=== PATIENT | male | born 1955 | race African-American/Black ===

== ENCOUNTER 2016-07-24 10:47 | Inpatient (IN) | payer OTHER ==
[~2016-07-24] VITALS: Ht 180.3 cm; Wt 97.7 kg
[~2016-07-24 10:47] MED LIST: ASP81EC PO; Atorvastatin Calcium PO; CLOP75TA28 PO; DOCU-94 PO; GABA600T PO; Hctz PO; INSLISPI SC; INSUINJ37 SUBCUT; LIS10T PO; NOR10T PO
[2016-07-24 11:38] LABS: Basophils # (auto) 0 uL; Basophils % (auto) 0.5 % (0.0-2.0); DEFINITIVE VIEW TRANSMISSION; Eosinophils # (auto) 0 uL; Eosinophils % (auto) 0.4 % (0.0-7.0); Hematocrit 42.1 % (41.0-53.0); Hemoglobin 13.6 g/dL (13.5-17.5); Lymphocytes # (auto) 1.7 uL; Lymphocytes % (auto) 23.9 % (10.0-50.0); Mean Corpuscular Hemoglobin 26.1 pg (28.0-32.0); Mean Corpuscular Hgb Conc. 32.3 g/dL (32.0-36.0); Mean Corpuscular Volume 80.9 fL (80.0-100.0); Mean Platelet Volume 9.2 fL (7.4-10.4); Monocytes # (auto) 0.3 uL; Monocytes % (auto) 4.6 % (0.0-12.0); Neutrophils # (auto) 5.1 uL; Neutrophils % (auto) 70.6 % (37.0-80.0); Nucleated Red Blood Cells % 2.4 %; Platelet Count (auto) 223 10^3/uL (140-450); Red Cell Distribution Width 14.8 % (11.6-16.0); White Blood Cell 7.3 10^3/uL (4.4-10.8)
[2016-07-24 11:57] LABS: Albumin 2.9 g/dL (3.4-5.0); BUN/Creatinine Ratio 11.1; Bilirubin, Total 0.5 mg/dL (0.2-1.0); Magnesium 1.7 mg/dL (1.6-2.6); Potassium 3.8 mmol/L (3.5-5.1); Total Protein 7.4 g/dL (6.4-8.2)
[2016-07-24] MEDS ORDERED: FUROSEMIDE 40 MG/4 ML VIAL IV ONE (12:00)
[2016-07-24 13:15] LABS: B-Type Natriuretic Peptide 250.54 pg/mL (0-100); Temperature: 22.3 C (20.0-25.0)
[2016-07-24 15:13] LABS: Urine Bilirubin Negative (Negative); Urine Blood Negative /uL (Negative); Urine Ketone Negative (Negative); Urine Nitrite Negative (Negative); Urine RBC 4 /hpf (0 - 3); Urine Squamous Epithelial Cell FEW /hpf (<5); Urine Urobilinogen Normal (Negative)
[2016-07-24 15:17] LABS: Urine Glucose 3+ mg/dL (Normal)
[2016-07-24 15:18] LABS: Urine Color Yellow (Yellow)
[2016-07-24] MEDS ORDERED: LISINOPRIL 10 MG TAB PO ONE (17:15)
[2016-07-24] MEDS ORDERED: NITROGLYCERIN 0.4 MG SL TAB SL PRN (17:15)
[2016-07-24] MEDS ORDERED: DEXTROSE (50%) 50ML SYRG IV PRN (17:15)
[2016-07-24] MEDS ORDERED: NIFEdipine ER 30 MG TAB PO ONE (17:15)
[2016-07-24] MEDS: ALBUTEROL SULF 2.5 MG/0.5ML(0.5%) NEB SOLN NEB SCH (18:33)
[2016-07-24] MEDS: IPRATROPIUM BROM 0.5 MG/2.5ML INH SOL NEB SCH (18:33)
[2016-07-24] MEDS: ONDANSETRON HCL 4 MG/2 ML VIAL IV PRN (18:44)
[2016-07-24] MEDS: MORPHINE SULF INJ 2 MG/ML SYRINGE 1ML IV PRN (18:45)
[2016-07-24 20:30] VITALS: BP 150/95
[2016-07-24] MEDS: InsuLIN REG 1unit/0.01ml Soln (100units/ml) SC SCH (21:29)
[2016-07-24] MEDS: ACCU-CHEK COMFORT CURVE STRIP VI SCH (21:30)
[2016-07-24] MEDS: ATORVASTATIN 20 MG TAB PO SCH (21:47)
[2016-07-24] MEDS: GABAPENTIN 300 MG CAP PO SCH (21:47)
[2016-07-24 22:00] VITALS: BP 150/95
[2016-07-25 01:34] VITALS: BP 150/95
[2016-07-25 05:00] VITALS: BP 137/79
[2016-07-25] MEDS: HYDROcodone-ACET 10/325MG TAB PO PRN ×2 (05:07→23:06)
[2016-07-25] MEDS: GABAPENTIN 300 MG CAP PO SCH ×2 (05:49→14:00)
[2016-07-25] MEDS: InsuLIN REG 1unit/0.01ml Soln (100units/ml) SC SCH ×4 (06:02→23:10)
[2016-07-25] MEDS: ACCU-CHEK COMFORT CURVE STRIP VI SCH ×4 (06:03→23:11)
[2016-07-25 06:25] LABS: Potassium 4.2 mmol/L (3.5-5.1)
[2016-07-25 06:32] LABS: BUN/Creatinine Ratio 12.2
[2016-07-25 09:00] VITALS: BP 140/94
[2016-07-25] MEDS: IPRATROPIUM BROM 0.5 MG/2.5ML INH SOL NEB SCH ×4 (09:15→19:44)
[2016-07-25] MEDS: ALBUTEROL SULF 2.5 MG/0.5ML(0.5%) NEB SOLN NEB SCH ×4 (09:16→19:44)
[2016-07-25] MEDS: CLOPIDOGREL BISULFATE 75 MG TAB PO SCH (10:15)
[2016-07-25] MEDS: ASPirin 81 mg TAB PO SCH (10:15)
[2016-07-25] MEDS: FUROSEMIDE 40 MG/4 ML VIAL IV SCH (10:15)
[2016-07-25] MEDS: POTASSIUM CHL 20 Meq TABLET PO SCH (10:15)
[2016-07-25] MEDS: NIFEdipine ER 30 MG TAB PO SCH (10:16)
[2016-07-25] MEDS: METOLAZONE 5 MG TAB PO SCH (10:16)
[2016-07-25] MEDS: LISINOPRIL 10 MG TAB PO SCH (10:16)
[2016-07-25] MEDS: ONDANSETRON HCL 4 MG/2 ML VIAL IV PRN (12:21)
[2016-07-25] MEDS: MORPHINE SULF INJ 2 MG/ML SYRINGE 1ML IV PRN (12:21)
[2016-07-25 13:01] VITALS: BP_SYST 129; BP_DIAS 19; BP_DIAS 83
[2016-07-25 16:57] VITALS: BP 118/55
[2016-07-25] MEDS: ATORVASTATIN 20 MG TAB PO SCH (21:46)
[2016-07-25] MEDS: GABAPENTIN 400 MG CAP PO SCH (21:46)
[2016-07-25 22:00] VITALS: BP 129/70
[2016-07-26 05:30] VITALS: BP 126/68
[2016-07-26] MEDS: GABAPENTIN 400 MG CAP PO SCH ×3 (05:40→22:35)
[2016-07-26] MEDS: ACCU-CHEK COMFORT CURVE STRIP VI SCH ×4 (05:41→22:38)
[2016-07-26] MEDS: HYDROcodone-ACET 10/325MG TAB PO PRN ×2 (05:41→17:08)
[2016-07-26] MEDS: IPRATROPIUM BROM 0.5 MG/2.5ML INH SOL NEB SCH ×4 (06:28→18:00)
[2016-07-26] MEDS: ALBUTEROL SULF 2.5 MG/0.5ML(0.5%) NEB SOLN NEB SCH ×4 (06:28→18:00)
[2016-07-26] MEDS: InsuLIN REG 1unit/0.01ml Soln (100units/ml) SC SCH ×4 (06:43→22:39)
[2016-07-26 07:07] LABS: Calcium 8.7 mg/dL (8.5-10.1); Potassium 3.8 mmol/L (3.5-5.1)
[2016-07-26 09:00] VITALS: BP 131/82
[2016-07-26] MEDS: METOLAZONE 5 MG TAB PO SCH (09:49)
[2016-07-26] MEDS: LISINOPRIL 10 MG TAB PO SCH (09:49)
[2016-07-26] MEDS: FUROSEMIDE 40 MG/4 ML VIAL IV SCH (09:49)
[2016-07-26] MEDS: CLOPIDOGREL BISULFATE 75 MG TAB PO SCH (09:50)
[2016-07-26] MEDS: POTASSIUM CHL 20 Meq TABLET PO SCH (09:50)
[2016-07-26] MEDS: ASPirin 81 mg TAB PO SCH (09:50)
[2016-07-26] MEDS: NIFEdipine ER 30 MG TAB PO SCH (09:50)
[2016-07-26] MEDS: ONDANSETRON HCL 4 MG/2 ML VIAL IV PRN (11:39)
[2016-07-26 13:00] VITALS: BP 123/73
[2016-07-26 22:00] VITALS: BP 129/79
[2016-07-26] MEDS: ATORVASTATIN 20 MG TAB PO SCH (22:35)
[2016-07-27] MEDS: HYDROcodone-ACET 10/325MG TAB PO PRN ×3 (00:52→15:19)
[2016-07-27 05:30] VITALS: BP 101/54
[2016-07-27] MEDS: GABAPENTIN 400 MG CAP PO SCH ×2 (05:56→12:34)
[2016-07-27] MEDS: ACCU-CHEK COMFORT CURVE STRIP VI SCH ×3 (06:00→17:00)
[2016-07-27] MEDS: InsuLIN REG 1unit/0.01ml Soln (100units/ml) SC SCH ×3 (06:21→17:00)
[2016-07-27] MEDS: ALBUTEROL SULF 2.5 MG/0.5ML(0.5%) NEB SOLN NEB SCH ×3 (06:43→11:34)
[2016-07-27] MEDS: IPRATROPIUM BROM 0.5 MG/2.5ML INH SOL NEB SCH ×3 (06:43→11:34)
[2016-07-27 08:43] VITALS: BP 137/76
[2016-07-27] MEDS: POTASSIUM CHL 20 Meq TABLET PO SCH (11:34)
[2016-07-27] MEDS: METOLAZONE 5 MG TAB PO SCH (11:34)
[2016-07-27] MEDS: CLOPIDOGREL BISULFATE 75 MG TAB PO SCH (11:34)
[2016-07-27] MEDS: LISINOPRIL 10 MG TAB PO SCH (11:35)
[2016-07-27] MEDS: ASPirin 81 mg TAB PO SCH (11:35)
[2016-07-27] MEDS: NIFEdipine ER 30 MG TAB PO SCH (11:36)
[2016-07-27] MEDS: FUROSEMIDE 40 MG/4 ML VIAL IV SCH (11:42)
[2016-07-27 11:47] VITALS: BP 130/70
[2016-07-27 16:27] VITALS: BP 139/89
[2016-07-27 16:29] VITALS: BP 134/82
== END 2016-07-27 17:10 | disposition home or self-care (01) | DRG 194 ==
LOC: ER 10:49 → TELE 10:50 → TELE-WESTW 19:45 → WEST WING 07-25 13:52
PROVIDERS: ADMIT Internal Medicine; ATTEND Internal Medicine
DX: I50.33 Acute on chronic diastolic (congestive) heart failure (principal); E11.21 Type 2 diabetes mellitus with diabetic nephropathy; E44.0 Moderate protein-calorie malnutrition; N18.3 Chronic kidney disease, stage 3 (moderate); E11.65 Type 2 diabetes mellitus with hyperglycemia; I13.0 Hypertensive heart and chronic kidney disease with heart failure and stage 1 through stage 4 chronic kidney disease, or unspecified chronic kidney disease; I25.10 Atherosclerotic heart disease of native coronary artery without angina pectoris; J44.9 Chronic obstructive pulmonary disease, unspecified; E11.22 Type 2 diabetes mellitus with diabetic chronic kidney disease; E78.5 Hyperlipidemia, unspecified; J45.909 Unspecified asthma, uncomplicated; J98.11 Atelectasis; Z83.3 Family history of diabetes mellitus; Z86.73 Personal history of transient ischemic attack (TIA), and cerebral infarction without residual deficits; Z87.442 Personal history of urinary calculi; Z91.19 Patient's noncompliance with other medical treatment and regimen; Z98.61 Coronary angioplasty status; Z79.82 Long term (current) use of aspirin; Z79.02 Long term (current) use of antithrombotics/antiplatelets; Z79.4 Long term (current) use of insulin; Z98.890 Other specified postprocedural states; Z95.0 Presence of cardiac pacemaker
CPT/HCPCS: 36415; 71020; 80048; 80053; 81001; 82962; 83735; 83880; 84484; 85025; 93005; 94640; 94761; 96374; J1815; J2405